=== PATIENT | female | born 1990 | race Caucasian/White ===

== ENCOUNTER 2021-11-28 16:31 | Inpatient (IN) | payer OTHER ==
[~2021-11-28] VITALS: Ht 157.5 cm; Wt 125.2 kg
[2021-11-28 17:21] LABS: HEMOGLOBIN 12.1 gm/dl (12.3-15.3); RED BLOOD COUNT 4.61 M/UL (4.00-5.10)
[2021-11-28] MEDS ORDERED: GLUCOPHAGE 500500 MG GT (18:38)
[2021-11-28] MEDS ORDERED: IRON325 M1 PO (18:38)
[2021-11-28] MEDS ORDERED: PRENATAL VITAM1 EAC3 PO (18:39)
[2021-11-29] MEDS ORDERED: IBUPROFEN800 MG PO (22:11)
[2021-11-29] MEDS ORDERED: COLACE 100MG C100 MG PO (22:11)
[2021-11-29] MEDS ORDERED: HYDROCODON-ACE1 EAC2 PO (22:11)
[2021-11-30 07:04] LABS: HEMOGLOBIN 9.9 gm/dl (12.3-15.3)
== END 2021-12-01 16:40 | disposition home or self-care (01) | DRG 787 ==
LOC: OB 16:31
PROVIDERS: ADMIT Obstetrics & Gynecology
PROC: 0W3R0ZZ Control Bleeding in Genitourinary Tract, Open Approach (ICD-10-PCS; 2021-11-29)
PROC: 10907ZC Drainage of Amniotic Fluid, Therapeutic from Products of Conception, Via Natural or Artificial Opening (ICD-10-PCS; 2021-11-29)
PROC: 10H07YZ Insertion of Other Device into Products of Conception, Via Natural or Artificial Opening (ICD-10-PCS; 2021-11-29)
PROC: 4A1H7CZ Monitoring of Products of Conception, Cardiac Rate, Via Natural or Artificial Opening (ICD-10-PCS; 2021-11-29)
PROC: 10H073Z Insertion of Monitoring Electrode into Products of Conception, Via Natural or Artificial Opening (ICD-10-PCS; 2021-11-29)
PROC: 10D00Z1 Extraction of Products of Conception, Low, Open Approach (ICD-10-PCS; principal; 2021-11-29 22:35)
DX: O99.52 Diseases of the respiratory system complicating childbirth (principal); D62 Acute posthemorrhagic anemia; J45.909 Unspecified asthma, uncomplicated; O99.824 Streptococcus B carrier state complicating childbirth; O72.1 Other immediate postpartum hemorrhage; E28.2 Polycystic ovarian syndrome; O99.02 Anemia complicating childbirth; O99.214 Obesity complicating childbirth; E66.9 Obesity, unspecified; O99.284 Endocrine, nutritional and metabolic diseases complicating childbirth; Z88.2 Allergy status to sulfonamides; Z37.0 Single live birth; Z3A.39 39 weeks gestation of pregnancy; Z90.49 Acquired absence of other specified parts of digestive tract; Z88.8 Allergy status to other drugs, medicaments and biological substances; Z28.310 Unvaccinated for COVID-19
CPT/HCPCS: 81001; 82800; 85014; 85018; 85025; 90471; 90715; C9113; J0690; J1170; J1200; J1650; J2210; J2250; J2274; J2370; J2405; J2590; J7050; J7120